=== PATIENT | female | born 1970 | race Two or more races ===

== ENCOUNTER 2017-07-24 12:10 | Outpatient (CLI) | payer OTHER | END 2017-07-24 17:00 | disposition home or self-care (01) | LOC: RAD 12:10 | DX: Z01.818 Encounter for other preprocedural examination (principal) ==

== ENCOUNTER 2017-07-26 07:00 | Day surgery (SDC) | payer OTHER | END 2017-07-26 14:25 | disposition home or self-care (01) | LOC: CIR.AMB 07:00 | DX: Z30.2 Encounter for sterilization (principal) ==